=== PATIENT | female | born 1955 | race Caucasian/White ===

== ENCOUNTER 2021-11-12 08:19 | Outpatient (CLI) | payer OTHER | END 2021-11-12 08:20 | disposition home or self-care (01) | LOC: CT 08:19 | PROVIDERS: ATTEND Internal Medicine Hematology & Oncology | DX: C50.112 Malignant neoplasm of central portion of left female breast (principal); C79.51 Secondary malignant neoplasm of bone | CPT/HCPCS: 71260; 74177; 78306; A9503 ==

== ENCOUNTER 2022-04-17 09:32 | Outpatient (CLI) | payer OTHER | END 2022-04-17 09:33 | disposition home or self-care (01) | LOC: NM 09:32 | PROVIDERS: ATTEND Internal Medicine Hematology & Oncology | DX: C50.112 Malignant neoplasm of central portion of left female breast (principal); C79.51 Secondary malignant neoplasm of bone; R59.0 Localized enlarged lymph nodes; R94.8 Abnormal results of function studies of other organs and systems | CPT/HCPCS: 71260; 74177; 78306; A9503 ==

== ENCOUNTER 2022-05-09 09:45 | Outpatient (CLI) | payer OTHER | END 2022-05-09 09:46 | disposition home or self-care (01) | LOC: BICRAD 09:45 | PROVIDERS: ATTEND Family Medicine | DX: R05.9 Cough, unspecified (principal) | CPT/HCPCS: 71046 ==

== ENCOUNTER 2022-08-08 08:08 | Outpatient (CLI) | payer OTHER ==
[2022-08-08] MEDS ORDERED: Iopamidol 370 76% 100 ML VIAL ONE (15:53)
== END 2022-08-08 08:09 | disposition home or self-care (01) ==
LOC: NM 08:08
PROVIDERS: ATTEND Internal Medicine Hematology & Oncology
DX: C79.51 Secondary malignant neoplasm of bone (principal); C50.112 Malignant neoplasm of central portion of left female breast; R59.0 Localized enlarged lymph nodes; R93.5 Abnormal findings on diagnostic imaging of other abdominal regions, including retroperitoneum; R91.1 Solitary pulmonary nodule
CPT/HCPCS: 71260; 74177; 78306; A9503; Q9967

== ENCOUNTER 2022-10-04 08:15 | Outpatient (CLI) | payer OTHER ==
[2022-10-04] MEDS ORDERED: Iopamidol-370 76% 500 ML 1 ML ONE (10:01)
== END 2022-10-04 08:16 | disposition home or self-care (01) ==
LOC: BICCT 08:15
PROVIDERS: ATTEND Internal Medicine Hematology & Oncology
DX: C50.112 Malignant neoplasm of central portion of left female breast (principal); C79.51 Secondary malignant neoplasm of bone; R59.0 Localized enlarged lymph nodes
CPT/HCPCS: 71260; 74177; 82565; Q9967

== ENCOUNTER → 2023-01-10 | Outpatient (CLI) | payer MEDICARE | LOC: PET 12:24 | PROVIDERS: ATTEND Internal Medicine Hematology & Oncology | DX: C50.112 Malignant neoplasm of central portion of left female breast (principal); C79.51 Secondary malignant neoplasm of bone | CPT/HCPCS: 78815; A9552 ==

== ENCOUNTER 2023-01-24 09:21 | Day surgery (SDC) | payer MEDICARE ==
[2023-01-20 14:43] VITALS: BMI 33.0
[2023-01-24] MEDS ORDERED: Lidocaine 1% PF 5 ML VIAL ONE (10:42)
[2023-01-24] MEDS ORDERED: Sodium Bicarbonate 2.5 MEQ/5 ML VIAL ONE (10:42)
== END 2023-01-24 12:15 | disposition home or self-care (01) ==
LOC: ULT 09:21
PROVIDERS: ATTEND Internal Medicine Hematology & Oncology
PROC: 07953ZX Drainage of Right Axillary Lymphatic, Percutaneous Approach, Diagnostic (ICD-10-PCS; principal; 2023-01-24)
DX: C77.3 Secondary and unspecified malignant neoplasm of axilla and upper limb lymph nodes (principal); C50.112 Malignant neoplasm of central portion of left female breast; K21.9 Gastro-esophageal reflux disease without esophagitis; E07.9 Disorder of thyroid, unspecified; Z17.0 Estrogen receptor positive status [ER+]; Z79.890 Hormone replacement therapy; Z79.899 Other long term (current) drug therapy
CPT/HCPCS: 10005; 88305; 88341; 88342

== ENCOUNTER 2023-03-06 07:01 | Day surgery (SDC) | payer MEDICARE ==
[2023-03-06] MEDS ORDERED: Bupivacaine/Epinephrine 0.25% 30 ML VIAL ONE (09:42)
[2023-03-06] MEDS ORDERED: Lidocaine 2% PF 5 ML VIAL ONE (09:42)
[2023-03-06] MEDS ORDERED: fentaNYL 50 mcg/mL 1 mL Vial ONE (09:43)
[2023-03-06] MEDS ORDERED: Sodium Chloride 0.9% 100 ML ONE (09:49)
[2023-03-06] MEDS ORDERED: CEFAZOLIN 2 GM VIAL ONE (09:49)
[2023-03-06] MEDS ORDERED: ePHEDrine Sulfate 50 MG/10 ML VIAL ONE (10:06)
[2023-03-06] MEDS ORDERED: Ondansetron PF 4 MG/2 ML Vial ONE (10:06)
[2023-03-06] MEDS ORDERED: Dexamethasone 20 MG/5 ML VIAL ONE (10:06)
== END 2023-03-06 11:52 | disposition home or self-care (01) ==
LOC: SDC 07:01
PROVIDERS: ATTEND Surgery
PROC: 0JH60WZ Insertion of Totally Implantable Vascular Access Device into Chest Subcutaneous Tissue and Fascia, Open Approach (ICD-10-PCS; principal; 2023-03-06)
PROC: 02HV33Z Insertion of Infusion Device into Superior Vena Cava, Percutaneous Approach (ICD-10-PCS; 2023-03-06)
PROC: B518ZZA Fluoroscopy of Superior Vena Cava, Guidance (ICD-10-PCS; 2023-03-06)
DX: C50.112 Malignant neoplasm of central portion of left female breast (principal)
CPT/HCPCS: 36561; 71045; C1788; J3010; J1100; J1642; J2001; J2405; J3490

== ENCOUNTER 2023-03-16 11:01 | Emergency (ER) | payer MEDICARE ==
[2023-03-16] MEDS ORDERED: Morphine 4 MG/ML VIAL ONE (12:55)
[2023-03-16] MEDS ORDERED: Ondansetron PF 4 MG/2 ML Vial ONE (12:55)
[2023-03-16] MEDS ORDERED: PROPOFOL 20 ML ONE (14:14)
== END 2023-03-16 15:08 | disposition home or self-care (01) ==
LOC: ERS 11:01
DX: S72.061A Displaced articular fracture of head of right femur, initial encounter for closed fracture (principal); Y93.E1 Activity, personal bathing and showering; Z79.899 Other long term (current) drug therapy; Z79.84 Long term (current) use of oral hypoglycemic drugs
CPT/HCPCS: 27250; 96374; 96375; 99152; J2270; J2405; J2704

== ENCOUNTER 2023-04-02 11:07 | Emergency (ER) | payer MEDICARE ==
[2023-04-02] MEDS ORDERED: Ketamine In 0.9 % NaCl 50 MG/5 ML SYRINGE ONE (11:53)
[2023-04-02] MEDS ORDERED: fentaNYL 50 mcg/mL 1 mL Vial ONE (11:58)
== END 2023-04-02 13:45 | disposition home or self-care (01) ==
LOC: ERS 11:07
DX: M24.351 Pathological dislocation of right hip, not elsewhere classified (principal); K21.9 Gastro-esophageal reflux disease without esophagitis; E03.9 Hypothyroidism, unspecified; E78.5 Hyperlipidemia, unspecified; Z87.891 Personal history of nicotine dependence; Z79.899 Other long term (current) drug therapy
CPT/HCPCS: 73501; 73502; 94760; J3010; 27250; 96374; 99156; 99157; J3490

== ENCOUNTER 2023-05-17 08:46 | Emergency (ER) | payer MEDICARE ==
[2023-05-17] MEDS ORDERED: PROPOFOL 20 ML ONE (09:02)
== END 2023-05-17 10:17 | disposition home or self-care (01) ==
LOC: ERS 08:46
DX: T84.020A Dislocation of internal right hip prosthesis, initial encounter (principal); E03.9 Hypothyroidism, unspecified; K21.9 Gastro-esophageal reflux disease without esophagitis; E78.5 Hyperlipidemia, unspecified; Z87.891 Personal history of nicotine dependence; Z79.899 Other long term (current) drug therapy
CPT/HCPCS: 27265; 99152; J2704

== ENCOUNTER 2023-06-06 12:13 | Emergency (ER) | payer MEDICARE ==
[2023-06-06] MEDS ORDERED: PROPOFOL 20 ML ONE (12:59)
== END 2023-06-06 14:55 | disposition home or self-care (01) ==
LOC: ERS 12:13
DX: S73.004A Unspecified dislocation of right hip, initial encounter (principal); E03.9 Hypothyroidism, unspecified; K21.9 Gastro-esophageal reflux disease without esophagitis; E78.5 Hyperlipidemia, unspecified; X50.1XXA Overexertion from prolonged static or awkward postures, initial encounter; Z87.891 Personal history of nicotine dependence; Z79.899 Other long term (current) drug therapy
CPT/HCPCS: 27265; 96374; J2704

== ENCOUNTER 2023-07-03 11:26 | Emergency (ER) | payer MEDICARE ==
[2023-07-03] MEDS ORDERED: diphenhydrAMINE 50 MG/ML VIAL ONE (11:45)
[2023-07-03] MEDS ORDERED: Propofol 1,000 MG/100 ML VIAL IV ONE (11:57)
[2023-07-03 12:12] LABS: #Eosinphils 0.1 thou/uL (0.0-0.7); #Monocytes 0.5 thou/uL (0.11-0.59); #Neutrophils 4.1 thou/uL (1.40-6.50); %Basophils 0.4 % (0.0-1.0); %Eosinophils 1.6 % (0.0-10.0); %Monocytes 9.2 % (0.0-10.0); %Neutrophils 73.6 % (42.0-75.0); Hematocrit 37.7 % (36.0-47.0); Mean Corpuscular HGB CONC 31.8 g/dL (32.0-36.0); Mean Corpuscular Hemoglobin 31.1 pg (27.0-31.0); Mean Corpuscular Volume 97.7 fl (78.0-98.0); Mean Platelet Volume 9.3 fL (7.4-10.4); Platelet Count 219 10x3/uL (130-400); RBC Distribution Width 20.5 % (11.5-14.5); Red Blood Cell (RBC) Count 3.86 mill/uL (4.20-5.40); White Blood Cell (WBC) Count 5.5 10x3/uL (4.8-10.8)
[2023-07-03 12:40] LABS: ALT (SGPT) 23 U/L (8-55); AST (SGOT) 18 U/L (5-34); Albumin 3.5 g/dL (3.4-4.8); Alkaline Phosphatase 53 U/L (40-110); Anion Gap 16 mmol/L (10-20); BUN (Urea Nitrogen) 20 mg/dL (9.8-20.1); Bilirubin, Total 0.7 mg/dL (0.2-1.2); Calc. Creatinine Clearance 0 mL/min (70-130); Calcium 8.9 mg/dL (7.8-10.44); Carbon Dioxide 21 mmol/L (23-31); Chloride 106 mmol/L (98-107); Estimated GFR 75; Globulin 2.7 g/dL (2.4-3.5); Glucose 117 mg/dL (80-115); Potassium 4.3 mmol/L (3.5-5.1); Protein, Total 6.2 g/dL (5.8-8.1); Sodium 139 mmol/L (136-145)
[2023-07-03 12:42] LABS: Bacteria/HPF None Seen HPF (None Seen); Bilirubin Negative (Negative); Blood, Urine 2+ (Negative); CAUTI Indications for Culture Dysuria,urgency,freq; Clarity Clear (Clear); Glucose, Urine (Dipstick) Normal (Negative); Ketone, Urine Negative (Negative); Leukocyte Negative Leu/uL (Negative); Nitrite Negative (Negative); Protein, Urine (Dipstick) 20 mg/dL (Neg-Trace); RBC/HPF 0-3 HPF (0-3); Specific Gravity, Urine 1.027 (1.002-1.036); Squamous Epithelial 0-3 HPF (0-3); Urobilinogen Normal mg/dL (Less than 2); WBC/HPF 0-3 HPF (0-3); pH, Urine 5.5 (5.0-9.0)
[2023-07-03 12:46] LABS: Urine Culture Reflex No No
== END 2023-07-03 13:50 | disposition home or self-care (01) ==
LOC: ERS 11:26
DX: S73.004A Unspecified dislocation of right hip, initial encounter (principal); E03.9 Hypothyroidism, unspecified; K21.9 Gastro-esophageal reflux disease without esophagitis; X50.0XXA Overexertion from strenuous movement or load, initial encounter; Z87.891 Personal history of nicotine dependence
CPT/HCPCS: 27250; 36415; 51701; 80053; 81001; 85025; 96374; 96375; 99152; 99153; J1200; J2704

== ENCOUNTER 2023-08-31 14:53 | Emergency (ER) | payer MEDICARE ==
[2023-08-31] MEDS ORDERED: Iopamidol-370 76% 500 ML MDV (1 ML CHARGE) ONE (15:57)
[2023-08-31] MEDS ORDERED: Morphine 4 MG/ML VIAL ONE (16:13)
[2023-08-31] MEDS ORDERED: Ondansetron PF 4 MG/2 ML Vial ONE (16:13)
[2023-08-31 16:52] LABS: #Monocytes 0.9 thou/uL (0.11-0.59); #Neutrophils 10.4 thou/uL (1.40-6.50); %Basophils 0.2 % (0.0-1.0); %Eosinophils 0.1 % (0.0-10.0); %Lymphocytes 9.2 % (21.0-51.0); %Monocytes 7.2 % (0.0-10.0); %Neutrophils 82.9 % (42.0-75.0); Hematocrit 28.6 % (36.0-47.0); Hemoglobin 9.1 g/dL (12.0-16.0); Mean Corpuscular HGB CONC 31.8 g/dL (32.0-36.0); Mean Corpuscular Hemoglobin 28.3 pg (27.0-31.0); Mean Corpuscular Volume 88.8 fl (78.0-98.0); Mean Platelet Volume 8.8 fL (7.4-10.4); Platelet Count 280 10x3/uL (130-400); RBC Distribution Width 16.7 % (11.5-14.5); Red Blood Cell (RBC) Count 3.22 mill/uL (4.20-5.40); White Blood Cell (WBC) Count 12.5 10x3/uL (4.8-10.8)
[2023-08-31 17:06] LABS: INR-International Normal Ratio 1.3; PTT 34.3 sec (22.9-36.1); Prothrombin Time 16.2 sec (12.0-14.7)
[2023-08-31 17:18] LABS: Troponin I Less than 0.010 ng/mL (< 0.028)
[2023-08-31 17:22] LABS: ALT (SGPT) 12 U/L (8-55); AST (SGOT) 12 U/L (5-34); Albumin 2.9 g/dL (3.4-4.8); Alkaline Phosphatase 58 U/L (40-110); Anion Gap 15 mmol/L (10-20); BUN (Urea Nitrogen) 13 mg/dL (9.8-20.1); Bilirubin, Total 0.5 mg/dL (0.2-1.2); Calc. Creatinine Clearance 0 mL/min (70-130); Calcium 8.4 mg/dL (7.8-10.44); Carbon Dioxide 18 mmol/L (23-31); Chloride 100 mmol/L (98-107); Estimated GFR 77; Globulin 3.8 g/dL (2.4-3.5); Glucose 130 mg/dL (80-115); Lipase 5 U/L (8-78); Potassium 3.2 mmol/L (3.5-5.1); Protein, Total 6.7 g/dL (5.8-8.1); Sodium 130 mmol/L (136-145)
[2023-08-31 21:00] LABS: Bacteria/HPF 4+ HPF (None Seen); Bilirubin Negative (Negative); Blood, Urine 3+ (Negative); CAUTI Indications for Culture Dysuria,urgency,freq; Clarity Clear (Clear); Glucose, Urine (Dipstick) Normal (Negative); Ketone, Urine Trace mg/dL (Negative); Leukocyte 500 Leu/uL (Negative); Nitrite Negative (Negative); Protein, Urine (Dipstick) 100 mg/dL (Neg-Trace); RBC/HPF Greater than 50 HPF (0-3); Urobilinogen Normal mg/dL (Less than 2); WBC/HPF Greater than 50 HPF (0-3); pH, Urine 6.5 (5.0-9.0)
[2023-08-31 21:03] LABS: Specific Gravity, Urine Greater than 1.060 (1.002-1.036)
[2023-08-31 21:04] LABS: Urine Culture Reflex Yes Yes
[2023-08-31] MEDS ORDERED: cefTRIAXone (ROCEPHIN) 1 GM VIAL ONE (21:25)
== END 2023-08-31 22:23 | disposition home or self-care (01) ==
LOC: ERS 14:53
DX: N10 Acute pyelonephritis (principal); M54.50 Low back pain, unspecified; R32 Unspecified urinary incontinence; E03.9 Hypothyroidism, unspecified; K21.9 Gastro-esophageal reflux disease without esophagitis; Z87.891 Personal history of nicotine dependence
CPT/HCPCS: 36415; 72141; 72146; 72148; 74177; 80053; 81001; 83605; 83690; 84484; 85025; 85610; 85730; 86140; 87077; 87086; 87186; 96365; 96375; J0696; J2270; J2405; Q9967

== ENCOUNTER 2023-09-25 10:15 | Outpatient (CLI) | payer MEDICARE | END 2023-09-25 10:16 | disposition home or self-care (01) | LOC: PET 10:15 | PROVIDERS: ATTEND Internal Medicine Hematology & Oncology | DX: C50.112 Malignant neoplasm of central portion of left female breast (principal); C79.51 Secondary malignant neoplasm of bone; R94.8 Abnormal results of function studies of other organs and systems | CPT/HCPCS: 78816; A9552 ==

== ENCOUNTER 2023-10-20 13:45 | Outpatient (CLI) | payer MEDICARE | END 2023-10-20 13:46 | disposition home or self-care (01) | LOC: BICCT 13:45 | PROVIDERS: ATTEND Internal Medicine Hematology & Oncology | DX: C50.112 Malignant neoplasm of central portion of left female breast (principal); C79.51 Secondary malignant neoplasm of bone; J98.4 Other disorders of lung; R91.8 Other nonspecific abnormal finding of lung field; R59.0 Localized enlarged lymph nodes | CPT/HCPCS: 71250 ==

== ENCOUNTER 2023-12-17 09:30 | Outpatient (CLI) | payer MEDICARE | END 2023-12-17 09:31 | LOC: PET 09:30 | PROVIDERS: ATTEND Internal Medicine Hematology & Oncology | DX: C50.112 Malignant neoplasm of central portion of left female breast (principal); C79.51 Secondary malignant neoplasm of bone; R59.0 Localized enlarged lymph nodes | CPT/HCPCS: 78815; A9552 ==

== ENCOUNTER 2024-03-24 18:25 | Inpatient (IN) | payer MEDICARE ==
[2024-03-24 19:43] LABS: Anion Gap 13 mmol/L (10-20); Globulin 4.1 g/dL (2.4-3.5)
[2024-03-24 19:48] LABS: ALT (SGPT) 31 U/L (8-55); AST (SGOT) 188 U/L (5-34); Albumin 2.9 g/dL (3.4-4.8); Alkaline Phosphatase 427 U/L (40-110); BUN (Urea Nitrogen) 26 mg/dL (9.8-20.1); Bilirubin, Total 1.1 mg/dL (0.2-1.2); Calc. Creatinine Clearance 0 mL/min (70-130); Calcium 8.2 mg/dL (7.8-10.44); Carbon Dioxide 17 mmol/L (23-31); Chloride 107 mmol/L (98-107); Estimated GFR 68; Glucose 226 mg/dL (80-115); Lipase 14 U/L (8-78); Potassium 3.8 mmol/L (3.5-5.1); Sodium 133 mmol/L (136-145)
[2024-03-24 20:03] LABS: Hematocrit 22.4 % (36.0-47.0); Hemoglobin 7.5 g/dL (12.0-16.0); Mean Corpuscular HGB CONC 33.5 g/dL (32.0-36.0); Mean Corpuscular Hemoglobin 28.4 pg (27.0-31.0); Mean Corpuscular Volume 84.8 fL (78.0-98.0); Platelet Count 20 10x3/uL (130-400); RBC Distribution Width 19.2 % (11.5-14.5); Red Blood Cell (RBC) Count 2.64 mill/uL (4.20-5.40)
[2024-03-24 20:31] LABS: Anisocytosis SLIGHT = 6-15 cells HPF (0-5); Band 11 % (5-11); Hypochromia SLIGHT = 6-15 cells HPF (0-5); Lymphocytes 13 % (21-51); Metamyelocyte 6 % (0-0); Monocytes 2 % (0-10); Neutrophil 68 % (42-75); Nucleated RBC (Manual Ct) 7 % (0); Ovalocytes SLIGHT = 2-5 cells HPF (0-1); Platelet Adequacy Comment Platelets Decreased; Poikilocytosis SLIGHT = 6-15 cells HPF (0-5); Polychromasia SLIGHT = 2-3 cells HPF (0-2); Schistocytes SLIGHT = 2-5 cells HPF (0-1); Smudge Cells 17.6 %; Tear Drops SLIGHT = 2-5 cells HPF (0-1)
[2024-03-24 20:34] LABS: Bacteria/HPF 4+ HPF (None Seen); Bilirubin Negative (Negative); Blood, Urine 3+ (Negative); CAUTI Indications for Culture Alt mental st,lethar; Clarity Turbid (Clear); Glucose, Urine (Dipstick) Normal (Negative); Ketone, Urine Negative (Negative); Leukocyte Negative Leu/uL (Negative); Nitrite Negative (Negative); Protein, Urine (Dipstick) 600 mg/dL (Neg-Trace); RBC/HPF 0-3 HPF (0-3); Specific Gravity, Urine 1.029 (1.002-1.036); Squamous Epithelial 0-3 HPF (0-3); Urobilinogen Normal mg/dL (Less than 2); pH, Urine 6.5 (5.0-9.0)
[2024-03-24 20:41] LABS: Urine Culture Reflex No No
[2024-03-24] MEDS ORDERED: Acetaminophen 325 MG TAB PO PRN (22:03)
[2024-03-24] MEDS ORDERED: Dextrose 50% Abboject 50 ML SYRINGE SLOW IVP PRN (22:07)
[2024-03-24] MEDS ORDERED: Glucagon 1 MG/ML KIT IM PRN (22:07)
[2024-03-24] MEDS ORDERED: Dextrose 5% in Water 1,000 ML IV PRN (22:07)
[2024-03-24] MEDS ORDERED: Ipratropium/Albuterol 3 ML NEB NEB PRN (22:08)
[2024-03-24] MEDS ORDERED: hydrALAZINE 20 MG/ML VIAL ONE (22:58)
[2024-03-25 00:38] VITALS: BMI 26.2
[2024-03-25] MEDS: cefTRIAXone\\ROCEPHIN 1 GM in Sodium Chloride 0.9% 100 ML IVPB SCH (00:53)
[2024-03-25] MEDS: hydrALAZINE 20 MG/ML VIAL SLOW IVP PRN (01:21)
[2024-03-25 05:28] LABS: Hemoglobin 7.8 g/dL (12.0-16.0); Mean Corpuscular HGB CONC 33.9 g/dL (32.0-36.0); Mean Corpuscular Hemoglobin 28.9 pg (27.0-31.0); Mean Corpuscular Volume 85.2 fL (78.0-98.0); Platelet Count 17 10x3/uL (130-400); RBC Distribution Width 19.2 % (11.5-14.5)
[2024-03-25 05:50] LABS: Anion Gap 15 mmol/L (10-20)
[2024-03-25] MEDS: Levothyroxine Sodium 112 MCG TAB PO SCH (05:54)
[2024-03-25] MEDS: Levothyroxine Sodium 25 MCG TAB PO SCH (05:54)
[2024-03-25 05:55] LABS: ALT (SGPT) 30 U/L (8-55); AST (SGOT) 189 U/L (5-34); Albumin 2.8 g/dL (3.4-4.8); Alkaline Phosphatase 420 U/L (40-110); BUN (Urea Nitrogen) 23 mg/dL (9.8-20.1); Bilirubin, Total 0.9 mg/dL (0.2-1.2); Calc. Creatinine Clearance 83 mL/min (70-130); Calcium 8.3 mg/dL (7.8-10.44); Carbon Dioxide 17 mmol/L (23-31); Chloride 107 mmol/L (98-107); Estimated GFR 81; Glucose 181 mg/dL (80-115); Potassium 3.5 mmol/L (3.5-5.1); Protein, Total 6.8 g/dL (5.8-8.1); Sodium 135 mmol/L (136-145)
[2024-03-25 06:34] LABS: Band 18 % (5-11); Large Platelets 1.8 % (0-5); Lymphocytes 6 % (21-51); Metamyelocyte 2 % (0-0); Monocytes 2 % (0-10); Myelocyte 1 % (0-0); Neutrophil 71 % (42-75); Nucleated RBC (Manual Ct) 6 % (0); Platelet Adequacy Comment Significant Decrease; Polychromasia SLIGHT = 2-3 cells HPF (0-2); Smudge Cells 31.2 %
[2024-03-25 08:30] VITALS: BMI 26.2
[2024-03-25] MEDS ORDERED: Non-Formulary Item 1 EACH (Levothyroxine Sodium [Levothyroxine Sodium] 137 MCG Capsule) PO SCH (09:00)
[2024-03-25] MEDS: Doxycycline 100 MG in Sodium Chloride 0.9% 100 ML IVPB SCH (09:12)
[2024-03-25] MEDS: Lisinopril 10 MG TAB PO SCH (09:12)
[2024-03-25] MEDS: Venlafaxine HCl XR 75 MG CAP PO SCH (09:12)
[2024-03-25] MEDS: Methocarbamol 500 MG TAB PO SCH (09:13)
[2024-03-25] MEDS: Pantoprazole DR 40 MG TAB PO SCH (09:13)
[2024-03-25] MEDS: Apixaban 5 MG TAB PO SCH (09:13)
[2024-03-25] MEDS: Fluticasone Propionate Nasal Spray 16 gm Bottle NASAL SCH (09:14)
[2024-03-25] MEDS: oxyCODONE 5 MG TAB PO PRN (10:37)
[2024-03-25] MEDS: HumaLOG 300 UNITS/3 ML VIAL SC PRN (10:55)
[2024-03-25 12:37] LABS: Influenza A by NAA Not Detected (NotDetected); Influenza B by NAA Not Detected (NotDetected); SARS-CoV-2 NAA Rapid Test Not Detected (NotDetected)
[2024-03-25] MEDS: guaiFENesin/Codeine 200 mg/20 mg 10 ml Cup PO PRN (18:05)
[2024-03-26] MEDS: Morphine 2 MG/ML VIAL SLOW IVP SCH (03:07)
[2024-03-26 06:34] LABS: Hematocrit 20.7 % (36.0-47.0); Hemoglobin 6.9 g/dL (12.0-16.0); Mean Corpuscular HGB CONC 33.3 g/dL (32.0-36.0); Mean Corpuscular Hemoglobin 28.9 pg (27.0-31.0); Mean Corpuscular Volume 86.6 fL (78.0-98.0); Platelet Count 10 10x3/uL (130-400); RBC Distribution Width 19.7 % (11.5-14.5); Red Blood Cell (RBC) Count 2.39 mill/uL (4.20-5.40)
[2024-03-26 06:50] LABS: Anion Gap 9 mmol/L (10-20); Globulin 3.5 g/dL (2.4-3.5)
[2024-03-26 06:55] LABS: ALT (SGPT) 31 U/L (8-55); AST (SGOT) 178 U/L (5-34); Albumin 2.6 g/dL (3.4-4.8); Alkaline Phosphatase 387 U/L (40-110); BUN (Urea Nitrogen) 26 mg/dL (9.8-20.1); Bilirubin, Total 0.7 mg/dL (0.2-1.2); Calc. Creatinine Clearance 84 mL/min (70-130); Calcium 8.6 mg/dL (7.8-10.44); Carbon Dioxide 21 mmol/L (23-31); Chloride 109 mmol/L (98-107); Estimated GFR 82; Glucose 106 mg/dL (80-115); Potassium 3.6 mmol/L (3.5-5.1); Protein, Total 6.1 g/dL (5.8-8.1); Sodium 135 mmol/L (136-145)
[2024-03-26 07:52] LABS: Band 12 % (5-11); Burr Cells SLIGHT = 2-5 cells HPF (0-1); Large Platelets 6.2 % (0-5); Lymphocytes 21 % (21-51); Monocytes 3 % (0-10); Neutrophil 62 % (42-75); Nucleated RBC (Manual Ct) 4 % (0); Platelet Adequacy Comment Significant Decrease; Poikilocytosis SLIGHT = 6-15 cells HPF (0-5); Reactive Lymphocytes 2 % (0-10); Schistocytes SLIGHT = 2-5 cells HPF (0-1)
[2024-03-26] MEDS ORDERED: Non-Formulary Item 1 EACH (Prednisone [Prednisone] 10 MG Tablet) PO SCH (09:00)
[2024-03-26] MEDS: predniSONE 50 MG TAB PO SCH (09:25)
[2024-03-26] MEDS ORDERED: Magnevist 469MG/ML 20 ML VIAL ONE (10:39)
[2024-03-26] MEDS: NIFEdipine XL 60 MG ER.TAB PO SCH (12:33)
[2024-03-26] MEDS: HumaLOG 300 UNITS/3 ML VIAL SC PRN (21:46)
[2024-03-27 05:02] LABS: #Basophils 0.04 10x3/uL (0.0-0.2); %Basophils 0.6 % (0.0-1.0); %Eosinophils 0.8 % (0.0-10.0); %Lymphocytes 25.4 % (21.0-51.0); %Monocytes 9.1 % (0.0-10.0); %Neutrophils 55.7 % (42.0-75.0); Hematocrit 22.5 % (36.0-47.0); Hemoglobin 7.9 g/dL (12.0-16.0); Mean Corpuscular HGB CONC 35.1 g/dL (32.0-36.0); Mean Corpuscular Hemoglobin 29.5 pg (27.0-31.0); Mean Platelet Volume 10.1 fL (7.4-10.4); Platelet Count 55 10x3/uL (130-400); RBC Distribution Width 18.7 % (11.5-14.5); Red Blood Cell (RBC) Count 2.68 mill/uL (4.20-5.40)
[2024-03-27 05:10] LABS: Anion Gap 15 mmol/L (10-20); Globulin 3.7 g/dL (2.4-3.5)
[2024-03-27 05:14] LABS: ALT (SGPT) 30 U/L (8-55); AST (SGOT) 189 U/L (5-34); Albumin 2.7 g/dL (3.4-4.8); Alkaline Phosphatase 390 U/L (40-110); BUN (Urea Nitrogen) 23 mg/dL (9.8-20.1); Bilirubin, Total 1.1 mg/dL (0.2-1.2); Calc. Creatinine Clearance 87 mL/min (70-130); Calcium 8.6 mg/dL (7.8-10.44); Carbon Dioxide 18 mmol/L (23-31); Chloride 107 mmol/L (98-107); Estimated GFR 86; Glucose 90 mg/dL (80-115); Potassium 3.6 mmol/L (3.5-5.1); Protein, Total 6.4 g/dL (5.8-8.1); Sodium 136 mmol/L (136-145)
[2024-03-27 12:28] VITALS: BP 182/86; TEMP 98
[2024-03-31] MEDS ORDERED: predniSONE 20 MG TAB PO SCH (08:00)
[2024-04-07] MEDS ORDERED: predniSONE 20 MG TAB PO SCH (08:00)
[2024-04-14] MEDS ORDERED: predniSONE 20 MG TAB PO SCH (08:00)
[2024-04-21] MEDS ORDERED: predniSONE 5 MG TAB PO SCH (08:00)
== END 2024-03-27 16:10 | disposition home or self-care (01) | DRG 689 ==
LOC: ERS 18:25 → 2NO 22:03 → OBSVTOIN 03-25 11:33
PROVIDERS: ADMIT Internal Medicine; ATTEND Internal Medicine
PROC: 30233N1 Transfusion of Nonautologous Red Blood Cells into Peripheral Vein, Percutaneous Approach (ICD-10-PCS; principal; 2024-03-26)
PROC: 30233R1 Transfusion of Nonautologous Platelets into Peripheral Vein, Percutaneous Approach (ICD-10-PCS; 2024-03-26)
DX: N39.0 Urinary tract infection, site not specified (principal); G93.41 Metabolic encephalopathy; J96.01 Acute respiratory failure with hypoxia; C78.7 Secondary malignant neoplasm of liver and intrahepatic bile duct; C79.51 Secondary malignant neoplasm of bone; J40 Bronchitis, not specified as acute or chronic; C50.919 Malignant neoplasm of unspecified site of unspecified female breast; I10 Essential (primary) hypertension; Z66 Do not resuscitate; D64.9 Anemia, unspecified; F32.A Depression, unspecified; K21.9 Gastro-esophageal reflux disease without esophagitis; D69.6 Thrombocytopenia, unspecified; E03.9 Hypothyroidism, unspecified; Z79.01 Long term (current) use of anticoagulants; Z79.899 Other long term (current) drug therapy; Z79.51 Long term (current) use of inhaled steroids; Z51.5 Encounter for palliative care; Z51.11 Encounter for antineoplastic chemotherapy; I07.1 Rheumatic tricuspid insufficiency
CPT/HCPCS: 36415; 36416; 36430; 51701; 70450; 70553; 71045; 80053; 81001; 82140; 82550; 83690; 84145; 84443; 85025; 86850; 86900; 86901; 87077; 87086; 87186; 87633; 87798; 93005; 93306; 94760; 96374; A9579; J0360; J0696; J1815; J2272; J3490; J7512; P9016; P9035

== ENCOUNTER 2024-04-03 11:25 | Inpatient (IN) | payer MEDICARE ==
[2024-04-03] MEDS ORDERED: Iopamidol-370 76% 500 ML MDV (1 ML CHARGE) ONE (11:45)
[2024-04-03 12:26] LABS: Globulin 3.9 g/dL (2.4-3.5)
[2024-04-03 12:29] LABS: Hematocrit 20.5 % (36.0-47.0); Hemoglobin 6.8 g/dL (12.0-16.0); INR-International Normal Ratio 2.5; Mean Corpuscular HGB CONC 33.2 g/dL (32.0-36.0); Mean Corpuscular Hemoglobin 30.9 pg (27.0-31.0); Mean Corpuscular Volume 93.2 fL (78.0-98.0); PTT 43.1 sec (22.9-36.1); Platelet Count 6 10x3/uL (130-400); RBC Distribution Width 21.2 % (11.5-14.5)
[2024-04-03 12:31] LABS: ALT (SGPT) 34 U/L (8-55); AST (SGOT) 164 U/L (5-34); Albumin 2.4 g/dL (3.4-4.8); Alkaline Phosphatase 455 U/L (40-110); Anion Gap 15 mmol/L (10-20); BUN (Urea Nitrogen) 36 mg/dL (9.8-20.1); Bilirubin, Total 1.9 mg/dL (0.2-1.2); Calc. Creatinine Clearance 0 mL/min (70-130); Carbon Dioxide 16 mmol/L (23-31); Chloride 110 mmol/L (98-107); Estimated GFR 74; Glucose 107 mg/dL (80-115); Lipase 23 U/L (8-78); Magnesium 2.2 mg/dL (1.6-2.6); Potassium 3.7 mmol/L (3.5-5.1); Protein, Total 6.3 g/dL (5.8-8.1); Sodium 137 mmol/L (136-145)
[2024-04-03 12:38] LABS: Anisocytosis SLIGHT = 6-15 cells HPF (0-5); Hypochromia SLIGHT = 6-15 cells HPF (0-5); Lymphocytes 12 % (21-51); Monocytes 3 % (0-10); Neutrophil 85 % (42-75); Nucleated RBC (Manual Ct) 5 % (0); Platelet Adequacy Comment Significant Decrease; Polychromasia SLIGHT = 2-3 cells HPF (0-2); Schistocytes SLIGHT = 2-5 cells HPF (0-1); Tear Drops SLIGHT = 2-5 cells HPF (0-1)
[2024-04-03 12:42] LABS: Critical Call Chem Troponin I NUR.LM21 @1242
[2024-04-03] MEDS ORDERED: Morphine 4 MG/ML VIAL ONE (15:28)
[2024-04-03 15:57] LABS: Influenza A by NAA Not Detected (NotDetected); Influenza B by NAA Not Detected (NotDetected); SARS-CoV-2 NAA Rapid Test Not Detected (NotDetected)
[2024-04-03 16:14] LABS: Lactic Acid 1.6 mmol/L (0.5-2.2)
[2024-04-03] MEDS ORDERED: niCARdipine 25 MG in Sodium Chloride 0.9% 250 ML 250 ML IVPB SCH (16:15)
[2024-04-03 16:31] LABS: Troponin I 0.549 ng/mL (< 0.028)
[2024-04-03 17:02] VITALS: BMI 24.9
[2024-04-03] MEDS: [UNRECOGNIZED DRUG - OTHER] IV SCH (17:43)
[2024-04-03] MEDS: HUM PROTHROMBIN CPLX IV SCH (17:43)
[2024-04-03] MEDS: ADMIXTURE FEE IV SCH (17:43)
[2024-04-03] MEDS ORDERED: hydrALAZINE 20 MG/ML VIAL SLOW IVP PRN (18:02)
[2024-04-03] MEDS: Labetalol HCl 100 MG/20 ML VIAL SLOW IVP PRN (19:05)
[2024-04-03] MEDS: cefTRIAXone\\ROCEPHIN 1 GM in Sodium Chloride 0.9% 100 ML IVPB SCH (20:39)
[2024-04-03 21:34] LABS: Hematocrit 19.5 % (36.0-47.0); Hemoglobin 6.4 g/dL (12.0-16.0); Mean Corpuscular HGB CONC 32.8 g/dL (32.0-36.0); Mean Corpuscular Hemoglobin 30.8 pg (27.0-31.0); Mean Corpuscular Volume 93.8 fL (78.0-98.0); Mean Platelet Volume 10.1 fL (7.4-10.4); Platelet Count 56 10x3/uL (130-400); RBC Distribution Width 18.9 % (11.5-14.5); Red Blood Cell (RBC) Count 2.08 mill/uL (4.20-5.40)
[2024-04-03 21:58] LABS: Band 3 % (5-11); Lymphocytes 14 % (21-51); Monocytes 1 % (0-10); Myelocyte 1 % (0-0); Neutrophil 81 % (42-75); Nucleated RBC (Manual Ct) 12 % (0); Platelet Adequacy Comment Platelets Decreased; Polychromasia SLIGHT = 2-3 cells HPF (0-2); Schistocytes SLIGHT = 2-5 cells HPF (0-1); Smudge Cells 38.8 %
[2024-04-03 22:13] LABS: Bacteria/HPF None Seen HPF (None Seen); Bilirubin Negative (Negative); Blood, Urine 1+ (Negative); CAUTI Indications for Culture Alt mental st,lethar; Clarity Clear (Clear); Glucose, Urine (Dipstick) Normal (Negative); Ketone, Urine Negative (Negative); Leukocyte Negative Leu/uL (Negative); Nitrite Negative (Negative); Protein, Urine (Dipstick) 300 mg/dL (Neg-Trace); RBC/HPF 0-3 HPF (0-3); Specific Gravity, Urine 1.045 (1.002-1.036); Squamous Epithelial 0-3 HPF (0-3); WBC/HPF 0-3 HPF (0-3)
[2024-04-03 22:20] LABS: Urine Culture Reflex No No
[2024-04-03] MEDS: methylPREDNISolone Sod Succ/PF 125 MG/2 ML VIAL IVP SCH (22:38)
[2024-04-03] MEDS: Lactated Ringer's 1,000 ML IV SCH (22:38)
[2024-04-03] MEDS: Vancomycin (BATCH) 2 GM in Premix 1 BAG IVPB SCH (22:45)
[2024-04-03] MEDS ORDERED: Piperacillin/Tazobactam 3.375 GM in Sodium Chloride 0.9% 100 ML IVPB SCH (23:59)
[2024-04-04] MEDS: Morphine 2 MG/ML VIAL SLOW IVP PRN (00:07)
[2024-04-04] MEDS: Lorazepam 2 MG/ML VIAL SLOW IVP PRN (00:10)
[2024-04-04 00:30] LABS: Critical Call Chem Troponin I RESULT DECREASING
[2024-04-04] MEDS: Piperacillin/Tazobactam 3.375 GM in Sodium Chloride 0.9% 100 ML IVPB SCH ×3 (00:47→13:22)
[2024-04-04] MEDS ORDERED: Piperacillin/Tazobactam 3.375 GM in Sodium Chloride 0.9% 100 ML IVPB SCH ×2 (04:00→18:00)
[2024-04-04] MEDS ORDERED: methylPREDNISolone Sod Succ/PF 125 MG/2 ML VIAL IVP SCH (09:00)
[2024-04-04] MEDS ORDERED: Vancomycin 1 GM in Premix 1 BAG IVPB SCH (10:00)
[2024-04-04] MEDS: Lactated Ringer's 1,000 ML IV SCH (12:48)
[2024-04-04] MEDS: Levothyroxine Sodium 125 MCG TAB PO SCH (12:49)
[2024-04-04] MEDS: methylPREDNISolone Sod Succ 40 MG VIAL IVP SCH (13:02)
[2024-04-04] MEDS: Vancomycin 1 GM in Premix 1 BAG IVPB SCH (15:33)
[2024-04-04] MEDS: Vancomycin 1 GM/200 ML (FROZEN) BAG ONE (15:34)
[2024-04-04] MEDS ORDERED: Vancomycin 1 GM in Sodium Chloride 0.9% 250 ML 250 ML IVPB SCH (21:00)
[2024-04-04 21:58] LABS: Hematocrit 29.6 % (36.0-47.0); Hemoglobin 10.3 g/dL (12.0-16.0); Mean Corpuscular HGB CONC 34.8 g/dL (32.0-36.0); Mean Corpuscular Hemoglobin 30.4 pg (27.0-31.0); Mean Corpuscular Volume 87.3 fL (78.0-98.0); Platelet Count 18 10x3/uL (130-400); RBC Distribution Width 16.8 % (11.5-14.5); Red Blood Cell (RBC) Count 3.39 mill/uL (4.20-5.40)
[2024-04-04 21:59] LABS: Globulin 3.5 g/dL (2.4-3.5)
[2024-04-04 22:03] LABS: ALT (SGPT) 28 U/L (8-55); AST (SGOT) 127 U/L (5-34); Albumin 2.3 g/dL (3.4-4.8); Alkaline Phosphatase 368 U/L (40-110); Anion Gap 14 mmol/L (10-20); BUN (Urea Nitrogen) 32 mg/dL (9.8-20.1); Bilirubin, Total 1.8 mg/dL (0.2-1.2); Calc. Creatinine Clearance 78 mL/min (70-130); Calcium 7.7 mg/dL (7.8-10.44); Carbon Dioxide 16 mmol/L (23-31); Chloride 111 mmol/L (98-107); Estimated GFR 80; Glucose 151 mg/dL (80-115); Protein, Total 5.8 g/dL (5.8-8.1); Sodium 137 mmol/L (136-145)
[2024-04-04 22:48] LABS: Band 3 % (5-11); Lymphocytes 7 % (21-51); Metamyelocyte 2 % (0-0); Monocytes 4 % (0-10); Myelocyte 2 % (0-0); Neutrophil 82 % (42-75); Nucleated RBC (Manual Ct) 6 % (0); Platelet Adequacy Comment Significant Decrease; Polychromasia SLIGHT = 2-3 cells HPF (0-2); Schistocytes SLIGHT = 2-5 cells HPF (0-1); Smudge Cells 32.3 %
[2024-04-04] MEDS: Labetalol HCl 100 MG/20 ML VIAL SLOW IVP PRN (23:30)
[2024-04-05] MEDS: Vancomycin 1 GM in Premix 1 BAG IVPB SCH (01:31)
[2024-04-05] MEDS: Piperacillin/Tazobactam 3.375 GM in Sodium Chloride 0.9% 100 ML IVPB SCH (01:31)
[2024-04-05 05:08] LABS: Hematocrit 28.5 % (36.0-47.0); Hemoglobin 9.9 g/dL (12.0-16.0); Mean Corpuscular HGB CONC 34.7 g/dL (32.0-36.0); Mean Corpuscular Hemoglobin 30.6 pg (27.0-31.0); Mean Platelet Volume 9.9 fL (7.4-10.4); Platelet Count 39 10x3/uL (130-400); RBC Distribution Width 16.7 % (11.5-14.5); Red Blood Cell (RBC) Count 3.24 mill/uL (4.20-5.40)
[2024-04-05] MEDS: hydrALAZINE 20 MG/ML VIAL SLOW IVP PRN (05:09)
[2024-04-05 05:11] LABS: Vancomycin, Random 29.5 ug/mL (See Comment)
[2024-04-05 05:12] LABS: Anion Gap 13 mmol/L (10-20); BUN (Urea Nitrogen) 33 mg/dL (9.8-20.1); Calc. Creatinine Clearance 76 mL/min (70-130); Calcium 7.9 mg/dL (7.8-10.44); Carbon Dioxide 18 mmol/L (23-31); Chloride 111 mmol/L (98-107); Estimated GFR 77; Glucose 172 mg/dL (80-115); Sodium 138 mmol/L (136-145)
[2024-04-05 05:39] LABS: Band 7 % (5-11); Lymphocytes 3 % (21-51); Metamyelocyte 1 % (0-0); Monocytes 3 % (0-10); Myelocyte 1 % (0-0); Neutrophil 85 % (42-75); Nucleated RBC (Manual Ct) 7 % (0); Platelet Adequacy Comment Platelets Decreased; Polychromasia SLIGHT = 2-3 cells HPF (0-2); Schistocytes SLIGHT = 2-5 cells HPF (0-1)
[2024-04-05] MEDS ORDERED: Levothyroxine Sodium 125 MCG TAB PO SCH (06:00)
[2024-04-05] MEDS: Levothyroxine Sodium 112 MCG TAB PO SCH (06:02)
[2024-04-05] MEDS: Levothyroxine Sodium 25 MCG TAB PO SCH (06:02)
[2024-04-05] MEDS: methylPREDNISolone Sod Succ 40 MG VIAL IVP SCH (08:07)
[2024-04-05] MEDS ORDERED: Albuterol 200 PUFF (6.7GM INHALER) INH PRN (13:58)
[2024-04-05 14:47] VITALS: BMI 24.9
[2024-04-05] MEDS: diphenhydrAMINE 50 MG/ML VIAL IVP SCH (17:12)
[2024-04-05] MEDS: Acetaminophen 325 MG TAB PO SCH (17:13)
[2024-04-06] MEDS: Vancomycin HCl 750 MG in Sodium Chloride 0.9% 250 ML 250 ML IVPB SCH (00:33)
[2024-04-06 00:58] LABS: Hematocrit 29.3 % (36.0-47.0); Hemoglobin 10.2 g/dL (12.0-16.0); Mean Corpuscular HGB CONC 34.8 g/dL (32.0-36.0); Mean Corpuscular Hemoglobin 31.3 pg (27.0-31.0); Mean Corpuscular Volume 89.9 fL (78.0-98.0); Platelet Count 31 10x3/uL (130-400); RBC Distribution Width 18.2 % (11.5-14.5); Red Blood Cell (RBC) Count 3.26 mill/uL (4.20-5.40)
[2024-04-06 01:08] LABS: Globulin 3.8 g/dL (2.4-3.5)
[2024-04-06 01:17] LABS: ALT (SGPT) 38 U/L (8-55); AST (SGOT) 174 U/L (5-34); Albumin 2.4 g/dL (3.4-4.8); Alkaline Phosphatase 488 U/L (40-110); Anion Gap 15 mmol/L (10-20); BUN (Urea Nitrogen) 35 mg/dL (9.8-20.1); Bilirubin, Total 2.7 mg/dL (0.2-1.2); Calc. Creatinine Clearance 75 mL/min (70-130); Calcium 8.3 mg/dL (7.8-10.44); Carbon Dioxide 15 mmol/L (23-31); Chloride 110 mmol/L (98-107); Estimated GFR 73; Glucose 177 mg/dL (80-115); Potassium 4.3 mmol/L (3.5-5.1); Protein, Total 6.2 g/dL (5.8-8.1); Sodium 136 mmol/L (136-145)
[2024-04-06] MEDS: Furosemide 40 MG (4 mL) VIAL ONE (07:29)
[2024-04-06] MEDS: Pantoprazole DR 40 MG TAB PO SCH (07:49)
[2024-04-06] MEDS ORDERED: Non-Formulary Item 1 EACH (Levothyroxine Sodium [Levothyroxine Sodium] 137 MCG Capsule) PO SCH (09:00)
[2024-04-06] MEDS ORDERED: D-Mannose [Azo D-Mannose] 500 MG Capsule PO SCH (09:00)
[2024-04-06 09:13] LABS: Hematocrit 32.1 % (36.0-47.0); Hemoglobin 11.4 g/dL (12.0-16.0); Mean Corpuscular HGB CONC 35.5 g/dL (32.0-36.0); Mean Corpuscular Hemoglobin 30.3 pg (27.0-31.0); Mean Corpuscular Volume 85.4 fL (78.0-98.0); Platelet Count 16 10x3/uL (130-400); RBC Distribution Width 18.1 % (11.5-14.5); Red Blood Cell (RBC) Count 3.76 mill/uL (4.20-5.40)
[2024-04-06 09:14] LABS: Vancomycin, Random 26.5 ug/mL (See Comment)
[2024-04-06 09:23] LABS: Anisocytosis SLIGHT = 6-15 cells HPF (0-5); Band 7 % (5-11); Large Platelets 1.9 % (0-5); Lymphocytes 10 % (21-51); Metamyelocyte 1 % (0-0); Monocytes 4 % (0-10); Myelocyte 3 % (0-0); Neutrophil 76 % (42-75); Nucleated RBC (Manual Ct) 17 % (0); Platelet Adequacy Comment Platelets Decreased; Polychromasia SLIGHT = 2-3 cells HPF (0-2); Schistocytes SLIGHT = 2-5 cells HPF (0-1); Smudge Cells 23.3 %
[2024-04-06 13:59] LABS: Globulin 3.8 g/dL (2.4-3.5)
[2024-04-06 14:04] LABS: ALT (SGPT) 41 U/L (8-55); AST (SGOT) 198 U/L (5-34); Albumin 2.5 g/dL (3.4-4.8); Alkaline Phosphatase 496 U/L (40-110); Anion Gap 16 mmol/L (10-20); BUN (Urea Nitrogen) 36 mg/dL (9.8-20.1); Bilirubin, Total 3.4 mg/dL (0.2-1.2); Calc. Creatinine Clearance 75 mL/min (70-130); Calcium 8.5 mg/dL (7.8-10.44); Carbon Dioxide 15 mmol/L (23-31); Chloride 111 mmol/L (98-107); Estimated GFR 74; Glucose 161 mg/dL (80-115); Potassium 4.3 mmol/L (3.5-5.1); Protein, Total 6.3 g/dL (5.8-8.1); Sodium 138 mmol/L (136-145)
[2024-04-06] MEDS: cloNIDine 0.1mg/24 Hour PATCH TD SCH (15:44)
[2024-04-07 06:39] LABS: Hematocrit 30.1 % (36.0-47.0); Hemoglobin 10.1 g/dL (12.0-16.0); Mean Corpuscular HGB CONC 33.6 g/dL (32.0-36.0); Mean Corpuscular Hemoglobin 30.2 pg (27.0-31.0); Mean Corpuscular Volume 90.1 fL (78.0-98.0); Platelet Count 12 10x3/uL (130-400); RBC Distribution Width 20.8 % (11.5-14.5); Red Blood Cell (RBC) Count 3.34 mill/uL (4.20-5.40)
[2024-04-07 07:21] LABS: Globulin 3.8 g/dL (2.4-3.5)
[2024-04-07 07:25] LABS: ALT (SGPT) 57 U/L (8-55); AST (SGOT) 280 U/L (5-34); Albumin 2.4 g/dL (3.4-4.8); Alkaline Phosphatase 487 U/L (40-110); Anion Gap 19 mmol/L (10-20); BUN (Urea Nitrogen) 44 mg/dL (9.8-20.1); Bilirubin, Total 5.5 mg/dL (0.2-1.2); Calc. Creatinine Clearance 69 mL/min (70-130); Calcium 8.4 mg/dL (7.8-10.44); Carbon Dioxide 13 mmol/L (23-31); Chloride 113 mmol/L (98-107); Estimated GFR 62; Glucose 142 mg/dL (80-115); Potassium 4.6 mmol/L (3.5-5.1); Protein, Total 6.2 g/dL (5.8-8.1); Sodium 140 mmol/L (136-145)
[2024-04-07 07:41] LABS: Band 12 % (5-11); Helmet Cells SLIGHT = 2-5 cells HPF (0-1); Lymphocytes 13 % (21-51); Macrocytosis SLIGHT = 6-15 cells HPF (0-5); Monocytes 3 % (0-10); Neutrophil 72 % (42-75); Nucleated RBC (Manual Ct) 14 % (0); Platelet Adequacy Comment Significant Decrease; Poikilocytosis SLIGHT = 6-15 cells HPF (0-5); Polychromasia SLIGHT = 2-3 cells HPF (0-2); Schistocytes SLIGHT = 2-5 cells HPF (0-1)
[2024-04-07 08:23] VITALS: BP 134/81; TEMP 97.5
[2024-04-07] MEDS: Sodium Bicarb 50 mEq/50 ML VIAL IVP SCH (10:53)
[2024-04-07] MEDS: Morphine 20 MG/ML Oral Solution (ROXANOL) SL SCH (13:46)
[2024-04-13] MEDS ORDERED: cloNIDine 0.1mg/24 Hour PATCH TD SCH (09:00)
== END 2024-04-07 13:52 | disposition hospice, home (50) | DRG 64 ==
LOC: ERS 11:25 → CCU 13:25 → IMCU/EMU 04-04 13:12 → T4-B 04-05 08:31
PROVIDERS: ADMIT Family Medicine; ATTEND Internal Medicine
PROC: 30233R1 Transfusion of Nonautologous Platelets into Peripheral Vein, Percutaneous Approach (ICD-10-PCS; principal; 2024-04-03)
PROC: 30233N1 Transfusion of Nonautologous Red Blood Cells into Peripheral Vein, Percutaneous Approach (ICD-10-PCS; 2024-04-03)
PROC: 30283B1 Transfusion of Nonautologous 4-Factor Prothrombin Complex Concentrate into Vein, Percutaneous Approach (ICD-10-PCS; 2024-04-03)
DX: I62.02 Nontraumatic subacute subdural hemorrhage (principal); G93.41 Metabolic encephalopathy; I21.A1 Myocardial infarction type 2; J96.01 Acute respiratory failure with hypoxia; I63.9 Cerebral infarction, unspecified; G93.5 Compression of brain; C34.90 Malignant neoplasm of unspecified part of unspecified bronchus or lung; C78.7 Secondary malignant neoplasm of liver and intrahepatic bile duct; N17.9 Acute kidney failure, unspecified; C79.51 Secondary malignant neoplasm of bone; D61.818 Other pancytopenia; N39.0 Urinary tract infection, site not specified; I62.03 Nontraumatic chronic subdural hemorrhage; I10 Essential (primary) hypertension; I27.20 Pulmonary hypertension, unspecified; Z51.5 Encounter for palliative care; Z66 Do not resuscitate; E03.9 Hypothyroidism, unspecified; K21.9 Gastro-esophageal reflux disease without esophagitis; F41.9 Anxiety disorder, unspecified; F32.A Depression, unspecified; Z79.899 Other long term (current) drug therapy; Z79.890 Hormone replacement therapy; Z79.51 Long term (current) use of inhaled steroids; Z96.649 Presence of unspecified artificial hip joint; Z98.890 Other specified postprocedural states; Z87.891 Personal history of nicotine dependence
CPT/HCPCS: 36415; 36430; 70450; 71045; 71275; 80053; 80202; 81001; 83605; 83690; 83735; 83880; 84443; 84484; 85025; 85610; 85730; 86850; 86900; 86901; 87040; 87081; 87633; 93005; 96374; 96375; J0360; J0696; J1200; J1642; J2060; J2270; J2272; J2543; J2920; J2930; J3370; J3370-JW; J3490; J7050; J7120; J7168; P9016; P9035; Q9967